=== PATIENT | female | born 1990 | race Caucasian/White ===

== ENCOUNTER 2018-11-18 10:42 | Inpatient (IN) | payer OTHER ==
[~2018-11-18] VITALS: Ht 154.9 cm; Wt 59.0 kg
[~2018-11-18 10:42] MED LIST: PRENATAL 19 TA1 EACH PO; SINGULAIR 10MG10 MG PO; ZYRTEC10 MG PO
[2018-11-25] MEDS ORDERED: ALLEGRA-D 12 H1 EACH PO (08:03)
== END 2018-11-29 12:36 | disposition home or self-care (01) | DRG 743 ==
LOC: SURH 11-25 07:15 → O/R 11-27 07:57 → OB/GYN 11-27 07:57 → SURH 11-27 08:30 → OB/GYN 11-27 11:36
PROVIDERS: ADMIT Obstetrics & Gynecology
PROC: 0UT97ZZ Resection of Uterus, Via Natural or Artificial Opening (ICD-10-PCS; principal; 2018-11-27 08:30)
DX: N81.2 Incomplete uterovaginal prolapse (principal); N72 Inflammatory disease of cervix uteri; N83.8 Other noninflammatory disorders of ovary, fallopian tube and broad ligament; D28.2 Benign neoplasm of uterine tubes and ligaments

== ENCOUNTER 2024-03-16 17:57 | Emergency (ER) | payer OTHER ==
[~2024-03-16] VITALS: Ht 154.9 cm; Wt 59.0 kg
[~2024-03-16 17:57] MED LIST changes: +ALLEGRA-D 12 H1 EACH PO
[2024-03-16] MEDS ORDERED: AUGMENTIN600 MG/5 M PO (18:49)
[2024-03-16] MEDS ORDERED: MOTRIN IB200 MG PO (18:49)
[2024-03-16] MEDS ORDERED: SYNTHROID100 MCG PO (18:50)
[2024-03-16] MEDS ORDERED: CEFTRIAXONE SODIUM 2,000 MG VIAL IV STA (19:35)
[2024-03-16] MEDS ORDERED: TRAMADOL HCL 50 MG TABLET PO STA ×2 (19:36→21:32)
[2024-03-16 20:33] LABS: HEMATOCRIT 36.2 % (36.0-45.00); HEMOGLOBIN 12.1 g/dL (12.0-15.00); MEAN CELL VOLUME 90.6 fL (80.00-100.00); MEAN CORPUSCULAR HEMOGLOBIN 30.4 pg (27.00-32.0); MEAN CORPUSCULAR HGB CONC 33.5 g/dl (32.0-36.0); PLATELET COUNT 313 K/uL (150-450); RED BLOOD COUNT 3.99 M/uL (4.00-6.00); RED CELL DISTRIBUTION WIDTH 12.8 % (11.5-14.5)
[2024-03-16 20:52] LABS: CALCIUM 8.6 mg/dL (8.5-10.1); CREATININE SERUM 0.54 mg/dL (0.55-1.02); GFR 129.23; POTASSIUM 3.95 mEq/L (3.5-5.1)
[2024-03-16] MEDS ORDERED: MORPHINE SULFATE 2 MG/ML SYRINGE IV STA ×2 (21:39→21:43)
[2024-03-16] MEDS ORDERED: MORPHINE SULFATE 4 MG/ML VIAL IV STA (22:43)
== END 2024-03-16 23:14 | disposition home or self-care (01) ==
LOC: ER 17:59
PROVIDERS: General Practice
DX: K05.20 Aggressive periodontitis, unspecified (principal); Z88.8 Allergy status to other drugs, medicaments and biological substances